=== PATIENT | male | born 1990 | race African-American/Black ===

== ENCOUNTER 2016-12-04 19:03 | Emergency (ER) | payer OTHER ==
[2016-12-04 19:27] VITALS: BP 135/78; PULSE 64; TEMP 98.3; BMI 34.4
--- NOTE | 2016-12-04 19:38 | PDOC ---
History of Present Illness - General History Source: Patient Exam Limitations: No Limitations - History of Present Illness Initial Comments: 12/04/16 20:44 Patient is a 26 year old male with no significant past medical history who presents to the ED with complaints of chest pain that began 2 hours before ED arrival. Patient reports chest pain began while at work and began to radiate to his back. He reports neck pain secondary to chest pain that began 2 hours ago. Patient reports slight throat swelling as well. Patient states rotating causes some discomfort in neck that radiates to back and down to right shoulder. Denies nausea, vomiting. Denies diarrhea, urinary problems. Denies any recent traveling. Denies any other symptoms. Allergies: Seasonal . Social history: Social drinker. No smoking. No illicit drugs. Surgical history: Left knee surgery (ACL) PMD: none <Jose Mike - Last Filed: 12/04/16 20:44> <Nafisa Agudelo - Last Filed: 12/04/16 22:31> - General Chief Complaint: Chest Pain Stated Complaint: CHEST PAIN Time Seen by Provider: 12/04/16 19:35 Past History <Jose Mike - Last Filed: 12/04/16 20:44> - Past Medical History Other medical history: denies - Suicide/Smoking/Psychosocial Hx Smoking Status: No Smoking History: Current some day smoker Number of Cigarettes Smoked Daily: 1 Information on smoking cessation initiated: No <Nafisa Agudelo - Last Filed: 12/04/16 22:31> - Past Medical History Allergies/Adverse Reactions: Allergies Allergy/AdvReac Type Severity Reaction Status Date / Time No Known Allergies Allergy Verified 12/04/16 19:27 Home Medications: Ambulatory Orders No Home Medications 0 dose .ROUTE UTDICT 11/18/11 Ibuprofen [Motrin -] 600 mg PO TID PRN #15 tablet 12/04/16 Review of Systems - Review of Systems Able to Perform ROS?: Yes Comments:: 12/04/16 20:44 GENERAL/CONSTITUTIONAL: No fever or chills. No weakness. HEAD, EYES, EARS, NOSE AND THROAT: No change in vision. No ear pain or discharge. No sore throat. GASTROINTESTINAL: No nausea, vomiting, diarrhea or constipation. GENITOURINARY: No dysuria, frequency, or change in urination. CARDIOVASCULAR: +Chest pain No chest pain or shortness of breath. RESPIRATORY: No cough, wheezing, or hemoptysis. MUSCULOSKELETAL: +Back Pain. +Neck pain. No joint or muscle swelling or pain. SKIN: No rash NEUROLOGIC: No headache, vertigo, loss of consciousness, or change in strength/ sensation. ENDOCRINE: No increased thirst. No abnormal weight change. HEMATOLOGIC/LYMPHATIC: No anemia, easy bleeding, or history of blood clots. ALLERGIC/IMMUNOLOGIC: No hives or skin allergy. All Other Systems: Reviewed and Negative <Jose Mike - Last Filed: 12/04/16 20:44> *Physical Exam - Vital Signs Last Vital Signs Temp Pulse Resp BP Pulse Ox 98.3 F 64 18 135/78 100 12/04/16 19:24 12/04/16 19:24 12/04/16 19:24 12/04/16 19:24 12/04/16 19:24 - Physical Exam Comments: 12/04/16 20:44 GENERAL: Awake, alert, and fully oriented, in no acute distress HEAD: No signs of trauma EYES: PERRLA, EOMI, sclera anicteric, conjunctiva clear ENT: Auricles normal inspection, hearing grossly normal, nares patent, oropharynx clear without exudates. Moist mucosa NECK: +Paraspinal trapezius tenderness to palpation. +scalene tenderness. supple, no lymphadenopathy, JVD, or masses LUNGS: Breath sounds equal, clear to auscultation bilaterally. No wheezes, and no crackles HEART: Regular rate and rhythm, normal S1 and S2, no murmurs, rubs or gallops ABDOMEN: Soft, nontender, normoactive bowel sounds. No guarding, no rebound. No masses EXTREMITIES: Normal range of motion, no edema. No clubbing or cyanosis. No cords, erythema, or tenderness NEUROLOGICAL: Cranial nerves II through XII grossly intact. Normal speech, normal gait SKIN: Warm, Dry, normal turgor, no rashes or lesions noted. 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 Noncardiac cp. No risk factors for cp. Will check cxr and medicate for msk pain. will re- eval. 12/04/16 22:27 re-eval: pt feeling much better. No pain at this time. WIll give work note for tomorrow. Will give motrin for pain at home. Discussed all reasons to return to the ED and need for follow up with PMD. Pt verbalizes all understanding. Pt stable for d/c to home. <Nafisa Agudelo - Last Filed: 12/04/16 22:31> *DC/Admit/Observation/Transfer - Attestations Scribe Attestion: 12/04/16 20:45 Documentation prepared by Jose Mike, acting as medical reimbursement manager for Nafisa Agudelo DO, MD/. <Jose Mike - Last Filed: 12/04/16 20:44> - Discharge Dispostion Admit: No - Attestations Physician Attestion: 12/04/16 22:30 I, Dr. Nafisa Agudelo DO, attest that this document has been prepared under my direction and personally reviewed by me in its entirety. I further attest, that it accurately reflects all work, treatment, procedures and medical decision -making performed by me. <Nafisa Agudelo - Last Filed: 12/04/16 22:31> Diagnosis at time of Disposition: Atypical chest pain - Discharge Dispostion Disposition: HOME Condition at time of disposition: Stable - Prescriptions Prescriptions: Ibuprofen [Motrin -] 600 mg PO TID PRN #15 tablet PRN Reason: Pain - Referrals Referrals: Jaime Navarrete MD [Staff Physician] - - Patient Instructions Printed Discharge Instructions: DI for Atypical Chest Pain Additional Instructions: Please take all meds as prescribed. Please return to the ED with any further complaints. Please follow up with your PMD. - Post Discharge Activity Forms/Work/School Notes: Back to Work
[2016-12-04] MEDS ORDERED: KETOROLAC TROMETHAMINE 60 MG/2 ML VIAL IM ONE (20:12)
[2016-12-04] MEDS ORDERED: KETOROLAC TROMETHAMINE 60 MG/2 ML VIAL ONE (20:38)
--- NOTE | 2016-12-08 20:11 | EKG ---
Test Reason : Blood Pressure : / mmHG Vent. Rate : 064 BPM Atrial Rate : 064 BPM P-R Int : 116 ms QRS Dur : 090 ms QT Int : 378 ms P-R-T Axes : 010 045 020 degrees QTc Int : 389 ms NORMAL SINUS RHYTHM WITH SINUS ARRHYTHMIA MINIMAL VOLTAGE CRITERIA FOR LVH, MAY BE NORMAL VARIANT BORDERLINE ECG WHEN COMPARED WITH ECG OF 18-NOV-2011 06:19, NO SIGNIFICANT CHANGE WAS FOUND SUBMITTED ON 12-08-2016 REPEAT EKG IF CLINICALLY INDICATED Confirmed by VICKY SOLIS MD ([id number]) on 12/08/2016 8:11:06 PM Referred By: Confirmed By:VICKY SOLIS MD
== END 2016-12-04 22:39 | disposition home or self-care (01) ==
LOC: JER 19:03
PROC: 3E0233Z Introduction of Anti-inflammatory into Muscle, Percutaneous Approach (ICD-10-PCS; principal; 2016-12-04)
DX: R07.89 Other chest pain (principal); F17.210 Nicotine dependence, cigarettes, uncomplicated
CPT/HCPCS: 71020-TC; 93005; 93010; 96372; 99281-25

== ENCOUNTER 2017-03-30 20:53 | Emergency (ER) | payer OTHER ==
[2017-03-30 22:43] VITALS: TEMP 98.7; BMI 31.3
--- NOTE | 2017-03-31 01:26 | PDOC ---
History of Present Illness - General History Source: Patient Exam Limitations: No Limitations - History of Present Illness Initial Comments: 03/31/17 01:27 The patient is a 26 year old male, with a significant past medical history, who presents to the emergency department with constant dry cough and nasal congestion since yesterday. He denies chest pain, shortness of breath, headache and dizziness. He denies fever, chills, nausea, vomit, diarrhea and constipation. He denies dysuria, frequency, urgency and hematuria. Allergies:NKDA Social history: occasional tobacco use <Ellen Moctezuma - Last Filed: 03/31/17 01:27> - General History Source: Patient <Olaf Mederos - Last Filed: 03/31/17 19:37> - General Chief Complaint: Cold Symptoms Stated Complaint: COUGH Time Seen by Provider: 03/31/17 01:23 Past History <Ellen Moctezuma - Last Filed: 03/31/17 01:27> - Suicide/Smoking/Psychosocial Hx Smoking Status: No Smoking History: Never smoked Have you smoked in the past 12 months: No Number of Cigarettes Smoked Daily: 1 Information on smoking cessation initiated: No Hx Alcohol Use: No Drug/Substance Use Hx: No <WilliamradhaOlaf - Last Filed: 03/31/17 19:37> - Past Medical History Allergies/Adverse Reactions: Allergies Allergy/AdvReac Type Severity Reaction Status Date / Time No Known Allergies Allergy Verified 03/31/17 02:30 Home Medications: Ambulatory Orders No Home Medications 0 dose .ROUTE UTDICT 11/18/11 Ibuprofen [Motrin -] 600 mg PO TID PRN #15 tablet 12/04/16 Ibuprofen 800 mg PO TID #30 tablet 03/31/17 Sulfamethoxazole/Trimethoprim [Bactrim *Ds*] 1 tab PO BID #14 tablet 03/31/17 Review of Systems - Review of Systems Able to Perform ROS?: Yes Comments:: 03/31/17 01:27 CONSTITUTIONAL: Absent: fever, chills, diaphoresis, generalized weakness, malaise, loss of appetite HEENT: (+) nasal congestion, Absent: rhinorrhea, throat pain, throat swelling, difficulty swallowing, mouth swelling, ear pain, eye pain, visual Changes CARDIOVASCULAR: Absent: chest pain, syncope, palpitations, irregular heart rate, lightheadedness , peripheral edema RESPIRATORY: (+) cough, Absent: shortness of breath, dyspnea with exertion, orthopnea, wheezing, stridor, hemoptysis GASTROINTESTINAL: Absent: abdominal pain, abdominal distension, nausea, vomiting, diarrhea, constipation, melena, hematochezia GENITOURINARY: Absent: dysuria, frequency, urgency, hesitancy, hematuria, flank pain, genital pain MUSCULOSKELETAL: Absent: myalgia, arthralgia, joint swelling SKIN: Absent: rash, itching, pallor HEMATOLOGIC/IMMUNOLOGIC: Absent: easy bleeding, easy bruising, lymphadenopathy, frequent infections ENDOCRINE: Absent: unexplained weight gain, unexplained weight loss, heat intolerance, cold intolerance NEUROLOGIC: Absent: headache, focal weakness or paresthesias, dizziness, unsteady gait, seizure, mental status changes, bladder or bowel incontinence PSYCHIATRIC: Absent: anxiety, depression, suicidal or homicidal ideation, hallucinations. <Ellen Moctezuma - Last Filed: 03/31/17 01:27> *Physical Exam - Vital Signs Last Vital Signs Temp Pulse Resp BP Pulse Ox 98.7 F 89 20 120/84 98 03/30/17 22:38 03/30/17 22:38 03/30/17 22:38 03/30/17 22:38 03/30/17 22:38 - Physical Exam Comments: 03/31/17 01:28 GENERAL: Well developed, well nourished. Awake and alert. No acute distress. HEENT: Normocephalic, atraumatic. PERRLA, EOMI. No conjunctival pallor. Sclera are non- icteric. Moist mucous membranes. Oropharynx is clear. NECK: Supple. Full ROM. No JVD. Carotid pulses 2+ and symmetric, without bruits. No thyromegaly. No lymphadenopathy. CARDIOVASCULAR: Regular rate and rhythm. No murmurs, rubs, or gallops. Distal pulses are 2+ and symmetric. PULMONARY: No evidence of respiratory distress. Lungs clear to auscultation bilaterally. No wheezing, rales or rhonchi. ABDOMINAL: Soft. Non-tender. Non-distended. No rebound or guarding. No organomegaly. Normoactive bowel sounds. MUSCULOSKELETAL Normal range of motion at all joints. No bony deformities or tenderness. No CVA tenderness. EXTREMITIES: No cyanosis. No clubbing. No edema. No calf tenderness. SKIN: Warm and dry. Normal capillary refill. No rashes. No jaundice. NEUROLOGICAL: Alert, awake, appropriate. Cranial nerves 2-12 intact. Normoreflexic in the upper and lower extremities. Normal speech. Toes are down-going bilaterally. Gait is normal without ataxia. PSYCHIATRIC: Cooperative. Good eye contact. Appropriate mood and affect. <Ellen Moctezuma - Last Filed: 03/31/17 01:27> - Vital Signs Last Vital Signs Temp Pulse Resp BP Pulse Ox 98.7 F 89 20 120/84 98 03/30/17 22:38 03/30/17 22:38 03/30/17 22:38 03/30/17 22:38 03/30/17 22:38 <Olaf Mederos - Last Filed: 03/31/17 19:37> Medical Decision Making - Medical Decision Making 03/31/17 19:36 Dr. Mederos: The scribe's documentation has been prepared under my direction and personally reviewed by me in its entirery. I confirm that the note above accurately reflects all work, treatment, procedures, and medical decision making performed by me. <Olaf Mederos - Last Filed: 03/31/17 19:37> *DC/Admit/Observation/Transfer - Attestations Scribe Attestion: 03/31/17 01:28 Documentation prepared by Ellen Moctezuma, acting as medical sales representative for Olaf Mederos DO <Ellen Moctezuma - Last Filed: 03/31/17 01:27> - Discharge Dispostion Admit: No <Olaf Mederos - Last Filed: 03/31/17 19:37> Diagnosis at time of Disposition: Cough, Bronchitis - Discharge Dispostion Disposition: HOME Condition at time of disposition: Stable - Prescriptions Prescriptions: Ibuprofen 800 mg PO TID #30 tablet Sulfamethoxazole/Trimethoprim [Bactrim *Ds*] 1 tab PO BID #14 tablet - Referrals Referrals: Olman Monge MD [Staff Physician] - - Patient Instructions Printed Discharge Instructions: DI for Cough -- Adult, DI for Acute Bronchitis Additional Instructions: Take medication as directed. Drink plenty of fluids. Please follow up with your primary care doctor. - Post Discharge Activity Forms/Work/School Notes: Back to Work
[2017-03-31] MEDS ORDERED: SULFAMETHOXAZOLE/TRIMETHOPRIM 800MG/160MG D.S. TABLET PO ONE (02:17)
[2017-03-31 02:29] VITALS: BP 120/71; PULSE 79
[2017-03-31] MEDS ORDERED: SULFAMETHOXAZOLE/TRIMETHOPRIM 800MG/160MG D.S. TABLET ONE (02:52)
== END 2017-03-31 03:19 | disposition home or self-care (01) ==
LOC: JERFT 20:53 → JER 20:53
DX: J40 Bronchitis, not specified as acute or chronic (principal); R05 Cough
CPT/HCPCS: 87804; 99281-25

== ENCOUNTER 2018-05-18 13:30 | Emergency (ER) | payer OTHER ==
[2018-05-18 13:38] VITALS: BP 124/69; PULSE 74; TEMP 98.1; BMI 32.4
--- NOTE | 2018-05-18 14:33 | PDOC ---
History of Present Illness - General Chief Complaint: Cold Symptoms Stated Complaint: COUGH / WEAKNESS Time Seen by Provider: 05/18/18 14:13 - History of Present Illness Initial Comments: 05/18/18 14:29 27-year-old male presents for evaluation of nasal congestion and cough 2 weeks without systemic symptoms. Past History - Past Medical History Allergies/Adverse Reactions: Allergies Allergy/AdvReac Type Severity Reaction Status Date / Time No Known Allergies Allergy Verified 05/18/18 13:35 Home Medications: Ambulatory Orders No Home Medications 0 dose .ROUTE UTDICT 11/18/11 Amox-Tr/K Cl [Augmentin - 875Mg Tablet] 1 tab PO BID #20 tablet 05/18/18 Budesonide [Rhinocort Allergy] 1 spray NS ONCE #1 spray.pump 05/18/18 COPD: No - Suicide/Smoking/Psychosocial Hx Smoking Status: No Smoking History: Current some day smoker Have you smoked in the past 12 months: No Number of Cigarettes Smoked Daily: 1 Information on smoking cessation initiated: No Hx Alcohol Use: No Drug/Substance Use Hx: No Review of Systems - Review of Systems Constitutional: No: Fever HEENTM: Yes: Nose Congestion Respiratory: Yes: Cough *Physical Exam - Vital Signs Last Vital Signs Temp Pulse Resp BP Pulse Ox 98.1 F 74 16 124/69 99 05/18/18 13:37 05/18/18 13:37 05/18/18 13:37 05/18/18 13:37 05/18/18 13:37 - Physical Exam Comments: 05/18/18 14:29 HEAD: NC/AT EYES: Conjuntiva clear Ears: Canals and TM's normal NOSE: Injected turbinates clear discharge. He THROAT: Moist mucous membrances, oral pharanx clear, uvula midline NECK: Supple without adenopathy CARDIAC: S1 S2 LUNGS: CTA Full and Equal breath sounds ABDOMEN: Soft NT ND MS: Full ROM in all joints without edema NEUROLOGIC: No gross sensory or motor deficits, NVID SKIN: Normal color and temperature no lesions or rashes Moderate Sedation - Procedure Monitoring Vital Signs: Procedure Monitoring Vital Signs Temperature 98.1 F 05/18/18 13:37 Pulse Rate 74 05/18/18 13:37 Respiratory Rate 16 05/18/18 13:37 Blood Pressure 124/69 05/18/18 13:37 O2 Sat by Pulse Oximetry (%) 99 05/18/18 13:37 Medical Decision Making - Medical Decision Making 05/18/18 14:31 27-year-old male with nasal congestion and cough 2 weeks intermittent headaches. I will treat him for sinusitis Augmentin and Rhinocort follow-up with ENT. *DC/Admit/Observation/Transfer Diagnosis at time of Disposition: Sinusitis - Discharge Dispostion Disposition: HOME Condition at time of disposition: Stable Decision to Admit order: No - Prescriptions Prescriptions: Amox-Tr/K Cl [Augmentin - 875Mg Tablet] 1 tab PO BID #20 tablet Budesonide [Rhinocort Allergy] 1 spray NS ONCE #1 spray.pump - Referrals Referrals: Eagle Roche MD [Staff Physician] - - Patient Instructions Printed Discharge Instructions: Sinusitis, DI for Sinusitis Additional Instructions: Leese take the antibiotics as directed and use the nasal spray as directed. Return to the emergency room for worsening symptoms and follow-up with ear nose and throat doctor in 1-2 days for further evaluation and treatment options. - Post Discharge Activity
== END 2018-05-18 14:35 | disposition home or self-care (01) ==
LOC: JERFT 13:30
DX: J32.9 Chronic sinusitis, unspecified (principal)
CPT/HCPCS: 99281-25